=== PATIENT | female | born 1990 | race Caucasian/White ===

== ENCOUNTER 2020-09-08 23:00 | Emergency (ER) | payer OTHER ==
[2020-09-09] LABS: BASOPHIL 0.5 % (0-2); EOSINOPHIL 1.9 % (0-5); HCT 43.7 % (37.0-47.0); HGB 14.1 g/dl (12.5-16.0); LYMPHOCYTE 31.5 % (15-48); MCH 28.3 pg (25.0-31.0); MCHC 32.3 g/dL (32.0-36.0); MCV 87.8 fL (78.0-100.0); MONOCYTE 7.2 % (0-12); MPV 12.3 fL (6.0-9.5); NEUTROPHIL 58.7 % (41-80); NRBC 0; PLT 193 K/uL (150-400); RBC 4.98 M/uL (4.20-5.40); RDW 13.9 % (11.5-14.0); WBC 9.6 K/uL (4.0-10.5)
[2020-09-09 00:01] LABS: BILIRUBIN NEGATIVE (NEGATIVE); BLOOD NEGATIVE Ery/uL (NEGATIVE); CLARITY CLEAR (CLEAR); COLOR YELLOW (YELLOW); GLUCOSE (U) NORMAL (NORMAL); LEUKOCYTES NEGATIVE Leu/uL (NEGATIVE); NITRITE NEGATIVE (NEGATIVE); PROTEIN NEGATIVE (NEGATIVE); SPECIFIC GRAVITY >=1.030 (1.001-1.030); UROBILINOGEN 0.2 mg/dL (0.2-1.0)
[2020-09-09 00:09] LABS: ALBUMIN 3.7 g/dL (3.4-5.0); BILIRUBIN - TOTAL 0.2 mg/dL (0.2-1.0); BUN/CREAT RATIO (CALC) 28.4 RATIO; CREATININE 0.81 mg/dL (0.51-0.95); GLOBULIN (CALCULATION) 3.1 g/dL; POTASSIUM 3.3 mmol/L (3.5-5.1); TOTAL PROTEIN 6.8 g/dL (6.4-8.2)
[2020-09-09] MEDS ORDERED: NAPROXEN500 MG PO (02:35)
[2020-09-09] MEDS ORDERED: NORCO 5-325 TA1 EACH PO (02:35)
[2020-09-09] MEDS ORDERED: VIBRAMYCIN100 MG PO (02:35)
== END 2020-09-09 02:59 | disposition home or self-care (01) ==
LOC: FER 23:00
PROVIDERS: Emergency Medicine
DX: R10.9 Unspecified abdominal pain (principal); R30.0 Dysuria; R50.9 Fever, unspecified; R11.2 Nausea with vomiting, unspecified; F17.210 Nicotine dependence, cigarettes, uncomplicated; Z90.49 Acquired absence of other specified parts of digestive tract
CPT/HCPCS: 36415; 80053; 81003; 84703; 85025; J1170; J1885; J2405; J7030